=== PATIENT | female | born 1990 | race Caucasian/White ===

== ENCOUNTER 2016-09-20 12:52 | Emergency (ER) ==
[2016-09-20 12:59] VITALS: BP 100/73; TEMP 98.8; BMI 43.2
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
== END 2016-09-20 14:12 | disposition home or self-care (01) ==
LOC: ED 12:52
DX: B37.3 Candidiasis of vulva and vagina (principal)
CPT/HCPCS: 99282

== ENCOUNTER 2018-01-04 09:03 | Emergency (ER) ==
[2018-01-04 09:06] VITALS: BP 112/77; TEMP 98.3; BMI 29.0
--- NOTE | 2018-01-04 09:48 | ED.PDOC ---
General ED Provider: Dr. IZABELLA VITAL Chief Complaint: Urinary Problem Stated Complaint: Bladder infection: Complains or urgency, frequency and buring of urination. Onset 3 days ago. Denies hematuria, vaginal discharge, abdomial/flank pain, fever, chills or sweats. Currently 20 weeks y - Time Seen by Physician: 09:30 Mode of Arrival: Walk-In Information Source: Patient Exam Limitations: No limitations Primary Care Provider: SHAWANDA RENEE Nursing and Triage Documentation Reviewed and Agree: Yes Does patient meet sepsis criteria?: No System Inflammatory Response Syndrome: Not Applicable Sepsis Protocol: For patient's 13 years and over: Temp is 96.8 and below OR 101 and greater Pulse >90 BPM Resp >20/minute Acutely Altered Mental Status Are patient's symptoms suggestive of a new infection, such as: -Pneumonia -Skin, Soft Tissue -Endocarditis -UTI -Bone, Joint Infection -Implantable Device -Acute Abdominal Infection -Wound Infection -Meningitis -Blood Stream Catheter Infection -Unknown Complaint Exam - UTI Female Complaint/Exam Patient Complains of: Reports: Painful urination Onset/Duration: 3 days Symptoms Are: Still present Timing: Constant Initial Severity: Moderate Review of Systems - Review Of Systems Constitutional: Reports: No symptoms Eyes: Reports: No symptoms Ears, Nose, Mouth, Throat: Reports: No symptoms Respiratory: Reports: No symptoms Cardiac: Reports: No symptoms GI: Reports: No symptoms : Reports: Burning, Dysuria, Frequency, Urgency Musculoskeletal: Reports: No symptoms Skin: Reports: No symptoms Neurological: Reports: No symptoms Endocrine: Reports: No symptoms Hematologic/Lymphatic: Reports: No symptoms All Other Systems: Reviewed and Negative Past Medical History - Past Medical History Previously Healthy: Yes Endocrine: Reports: None Cardiovascular: Reports: None Respiratory: Reports: None Hematological: Reports: None Gastrointestinal: Reports: None Genitourinary: Reports: None, UTI Neuro/Psych: Reports: None Musculoskeletal: Reports: None Cancer: Reports: None Last Menstrual Period: 20 WEEKS PREG Other Pertinent Past Medical History: possible relation to intercourse - Surgical History General Surgical History: Reports: None, Other (delivery ). Denies: Hysterectomy (D&C20) - Family History Family History: Reports: None - Social History Smoking Status: Never smoker Hx Substance Use: No Alcohol Screening: Occasionally Physical Exam - Physical Exam Appearance: Well-appearing, No pain distress, Well-nourished Eyes: COLEMAN, EOMI, Conjunctiva clear ENT: Ears normal, Nose normal, Oropharynx normal Respiratory: Airway patent, Breath sounds clear, Breath sounds equal, Respirations nonlabored Cardiovascular: RRR, Pulses normal, No rub, No murmur GI/: Soft, No masses, Bowel sounds normal, No Organomegaly, Tender ( suprapubic region, no uterine tenderness, measured to sl below ubilicus) Musculoskeletal: Normal strength, ROM intact, No edema, No calf tenderness Skin: Warm, Dry, Normal color Neurological: Sensation intact, Motor intact, Reflexes intact, Cranial nerves intact, Alert, Oriented Psychiatric: Affect appropriate, Mood appropriate Re-Evaluation - Re-Evaluation Time of Re-Evaluation: 11:15 (Explained results of Testing) Status: Improved Vital Signs Stable: Yes Appearance: NAD Lungs: Clear Skin: Warm and Dry Neuro: Alert and Oriented X3 CV: RRR Critical Care Note - Critical Care Note Total Time (mins): 0 Course - Course Orders, Labs, Meds: Lab Review 01/04/18 09:14 Urine Color Yellow Urine Clarity Turbid Urine pH 7.0 Ur Specific [place] 1.025 Urine Protein 1+ Urine Glucose (UA) Negative Urine Ketones Negative Urine Blood Trace-intact Urine Nitrite Negative Urine Bilirubin Negative Urine Urobilinogen 1.0 Ur Leukocyte Esterase 3+ Urine Microscopic RBC 2-5 Urine Microscopic WBC 30-50 Ur Squamous Epith Cells 2-5 Urine Bacteria 1+ Orders Category Date Time Status UA [URINALYSIS C & S IF INDICATED] Stat LAB 01/04/18 09:14 Completed URINE CULTURE Stat LAB 01/04/18 09:14 Received Vital Signs: Temp Pulse Resp BP Pulse Ox 01/04/18 09:03 98.3 F 91 H 20 112/77 98 Departure - Departure Time of Disposition: 11:20 Disposition: HOME SELF-CARE Discharge Problem: UTI (urinary tract infection) during Instructions: Urinary Tract Infection in (ED) Condition: Good Pt referred to PMD for follow-up: Yes (1 week) IPMP verified?: No Additional Instructions: Force clear liquids Tylenol as needed for pain (650 mg every 6 hrs as needed) Take antibiotics as directed Call [employer] or PCP on Saturday to schedule follow up appointment for next Saturday If you develop high fever, chills or sweat take tylenol for temp elevation > 101 degrees and notify your OB Allergies/Adverse Reactions: Allergies Penicillins Adverse Reaction (Verified 01/04/18 09:06) Rash Home Medications: Ambulatory Orders Cephalexin [Keflex] 500 mg PO Q8HR #21 capsule 01/04/18 No122/Iron/Folic Acid [ Multi Tablet] 1 each PO DAILY 01/04/18 Disposition Discussed With: Patient
== END 2018-01-04 12:06 | disposition home or self-care (01) ==
LOC: ED 09:03
DX: O23.42 Unspecified infection of urinary tract in pregnancy, second trimester (principal); Z3A.20 20 weeks gestation of pregnancy
CPT/HCPCS: 81001; 87086; 87186; 99283

== ENCOUNTER 2018-06-28 13:49 | Emergency (ER) ==
[2018-06-28 13:55] VITALS: BP 145/92; TEMP 98.6; BMI 26.6
--- NOTE | 2018-06-28 14:02 | ED.PDOC ---
General ED Provider: Dr. IZABELLA VITAL Chief Complaint: Tooth Problem Stated Complaint: Toothache. Rt sided facial swelling and pain. HX of neurofibromatosis. Rt upper molar cracked/collapsed 2 days ago Time Seen by Physician: 14:00 Mode of Arrival: Walk-In Information Source: Patient Exam Limitations: No limitations Primary Care Provider: SHAWANDA RENEE Nursing and Triage Documentation Reviewed and Agree: Yes Does patient meet sepsis criteria?: No System Inflammatory Response Syndrome: Not Applicable Sepsis Protocol: For patient's 13 years and over: Temp is 96.8 and below OR 101 and greater Pulse >90 BPM Resp >20/minute Acutely Altered Mental Status Are patient's symptoms suggestive of a new infection, such as: -Pneumonia -Skin, Soft Tissue -Endocarditis -UTI -Bone, Joint Infection -Implantable Device -Acute Abdominal Infection -Wound Infection -Meningitis -Blood Stream Catheter Infection -Unknown EENT Complaint Exam - Dental/Oral Complaint/Exam Mechanism of Injury: No known trauma Symptoms Are: Still present Timing: Constant Initial Severity: Moderate Current Severity: Moderate Location: Rt sided maxillary region Character: Reports: Dull, Throbbing Aggravating: Reports: Cold, Chewing Alleviating: Reports: None Associated Signs and Symptoms: Reports: Swelling, Foul taste in mouth. Denies: Discharge, Fever, Foul odor Related History: Reports: Similar episode Cardiac Risk Factors: Reports: None Dental/Oral Surgical History: Reports: None Tooth Findings: Present: Percussion tenderness, Gross decay, Gross caries Cervical Lymphadenopathy Present: No Facial Swelling Present: Yes Bleeding Present: No Oropharynx Findings: Absent: Clots, Active bleeding Septal Hematoma: No Foreign Body Present: No Dysphagia Present: No Drooling Present: No Asymmetrical Tonsillar Swelling Present: No Uvula Midline: Yes Charity-tonsillar Fluctuence: No Trismus Present: No Palatal Petechiae Present: Yes Scarlatinaform Rash Present: No Lesions: Absent: Lip, Gums, Tongue, Buccal Mucosa, Pharynx Exanthem: Absent: Lip, Gums, Tongue, Buccal Mucosa, Pharynx Vesicles: Absent: Lip, Gums, Tongue, Buccal Mucosa, Pharynx Differential Diagnoses: Dental Abcess, Dental Caries, Periodontic Disease Review of Systems - Review Of Systems Constitutional: Reports: No symptoms Eyes: Reports: No symptoms Ears, Nose, Mouth, Throat: Reports: No symptoms, Mouth pain, Mouth swelling Respiratory: Reports: No symptoms Cardiac: Reports: No symptoms GI: Reports: No symptoms : Reports: No symptoms Musculoskeletal: Reports: No symptoms Skin: Reports: No symptoms Neurological: Reports: No symptoms Endocrine: Reports: No symptoms Hematologic/Lymphatic: Reports: No symptoms All Other Systems: Reviewed and Negative Past Medical History - Past Medical History Previously Healthy: Yes Endocrine: Reports: None Cardiovascular: Reports: None Respiratory: Reports: None Hematological: Reports: None Gastrointestinal: Reports: None Genitourinary: Reports: None, UTI Neuro/Psych: Reports: None Musculoskeletal: Reports: None Cancer: Reports: None Last Menstrual Period: [id number] Other Pertinent Past Medical History: possible relation to intercourse - Surgical History General Surgical History: Reports: None, Other (delivery ). Denies: Hysterectomy (D&C20) - Family History Family History: Reports: None - Social History Smoking Status: Never smoker Hx Substance Use: No Alcohol Screening: None - Immunizations Tetanus Shot up to Date: No Physical Exam - Physical Exam Appearance: Ill-appearing Ill-appearing: None Pain Distress: Moderate Eyes: COLEMAN, EOMI, Conjunctiva clear ENT: Ears normal, Nose normal, Oropharynx normal Neck: Supple Respiratory: Airway patent Cardiovascular: RRR, Pulses normal, No rub, No murmur GI/: Soft, Nontender, No masses, Bowel sounds normal, No Organomegaly Musculoskeletal: Normal strength, ROM intact, No edema, No calf tenderness Skin: Warm, Dry, Normal color Neurological: Sensation intact, Motor intact, Reflexes intact, Cranial nerves intact, Alert, Oriented Psychiatric: Affect appropriate, Mood appropriate Critical Care Note - Critical Care Note Total Time (mins): 0 Course - Course Vital Signs: Temp Pulse Resp BP Pulse Ox 06/28/18 13:52 98.6 F 77 18 145/92 H 99 Departure - Departure Time of Disposition: 14:10 Disposition: HOME SELF-CARE Discharge Problem: Toothache, Abscess, dental Instructions: Dental Abscess (ED), Toothache (ED) Condition: Good Pt referred to PMD for follow-up: Yes (See PCP or Dentist next week) IPMP verified?: No Additional Instructions: Rinse mouth with warm salt water oragel topically for pain control avoid chewing on rt side Sched apt to see dentist at [facility] in [facility] next week Follow up ER if worsens Prescriptions: Clindamycin HCl [Cleocin HCl] 300 mg PO QID #28 capsule Ketorolac Tromethamine [Toradol] 10 mg PO Q6H PRN #20 tablet PRN Reason: Toothache Allergies/Adverse Reactions: Allergies Penicillins Adverse Reaction (Verified 06/28/18 13:54) Rash Home Medications: Ambulatory Orders Clindamycin HCl [Cleocin HCl] 300 mg PO QID #28 capsule 06/28/18 Ketorolac Tromethamine [Toradol] 10 mg PO Q6H PRN #20 tablet 06/28/18 Disposition Discussed With: Patient
== END 2018-06-28 14:25 | disposition home or self-care (01) ==
LOC: ED 13:49
DX: K08.89 Other specified disorders of teeth and supporting structures (principal); K04.7 Periapical abscess without sinus; S02.5XXA Fracture of tooth (traumatic), initial encounter for closed fracture
CPT/HCPCS: 99282

== ENCOUNTER 2018-11-14 20:42 | Emergency (ER) ==
[2018-11-14 20:46] VITALS: BP 133/91; TEMP 99; BMI 29.2
--- NOTE | 2018-11-14 21:40 | ED.PDOC ---
General ED Provider: Dr. SWATHI CHUNG Chief Complaint: Urinary Problem Stated Complaint: 28 y old with UTI.States has uti s on/off since NMarch and some before,Is allergic to PCN.Offered work-up for chronic uti but patient asked if sshe can dso it with her doctor,soon after,No other synptoms voiced, Afebrike today,. Had gestational DM.On meds from her doctor. Time Seen by Physician: 20:50 Mode of Arrival: Walk-In Information Source: Patient Exam Limitations: No limitations Primary Care Provider: SHAWANDA RENEE Nursing and Triage Documentation Reviewed and Agree: Yes Does patient meet sepsis criteria?: No System Inflammatory Response Syndrome: Not Applicable Sepsis Protocol: For patient's 13 years and over: Temp is 96.8 and below OR 101 and greater Pulse >90 BPM Resp >20/minute Acutely Altered Mental Status Are patient's symptoms suggestive of a new infection, such as: -Pneumonia -Skin, Soft Tissue -Endocarditis -UTI -Bone, Joint Infection -Implantable Device -Acute Abdominal Infection -Wound Infection -Meningitis -Blood Stream Catheter Infection -Unknown Complaint Exam - UTI Female Complaint/Exam Onset/Duration: on/off since august Symptoms Are: Still present Timing: Intermittent Initial Severity: Moderate Current Severity: Mild Location of Pain: Reports: Suprapubic Associated Signs and Symptoms: Reports: Chills, Flank pain Para: 2 Related History: Reports: Similar episode Related Surgical History: Reports: None CVA Tenderness: No (not now) Suprapubic Tenderness: Yes Differential Diagnoses: Bladder Dysfunction, Diabetes, Pyelonephritis Review of Systems - Review Of Systems Constitutional: Reports: No symptoms Eyes: Reports: No symptoms Ears, Nose, Mouth, Throat: Reports: No symptoms Respiratory: Reports: No symptoms Cardiac: Reports: No symptoms GI: Reports: No symptoms : Reports: No symptoms Musculoskeletal: Reports: No symptoms Skin: Reports: No symptoms Neurological: Reports: No symptoms Endocrine: Reports: No symptoms Hematologic/Lymphatic: Reports: No symptoms All Other Systems: Reviewed and Negative Past Medical History - Past Medical History Previously Healthy: Yes Endocrine: Reports: None Cardiovascular: Reports: None Respiratory: Reports: None Hematological: Reports: None Gastrointestinal: Reports: None Genitourinary: Reports: None, UTI Neuro/Psych: Reports: None Musculoskeletal: Reports: None Cancer: Reports: None Last Menstrual Period: 10/18/18 (IRREGULAR DUE TO NEW CONTROL) Other Pertinent Past Medical History: possible relation to intercourse - Surgical History General Surgical History: Reports: None, Other (delivery ). Denies: Hysterectomy (D&C204) - Family History Family History: Reports: None - Social History Smoking Status: Never smoker Hx Substance Use: No Alcohol Screening: None - Immunizations Tetanus Shot up to Date: No Physical Exam - Physical Exam Appearance: Well-appearing Ill-appearing: None Pain Distress: None Eyes: COLEMAN, EOMI, Conjunctiva clear ENT: Ears normal, Nose normal, Oropharynx normal Neck: Supple Respiratory: Airway patent, Breath sounds clear, Breath sounds equal Cardiovascular: RRR, Pulses normal, No rub, No murmur GI/: Soft, Nontender, No masses, Bowel sounds normal, No Organomegaly Musculoskeletal: Normal strength, ROM intact, No edema, No calf tenderness Skin: Warm, Dry, Normal color Neurological: Sensation intact, Motor intact, Reflexes intact, Cranial nerves intact, Alert, Oriented Psychiatric: Affect appropriate Critical Care Note - Critical Care Note Total Time (mins): 0 Course - Course Hematology/Chemistry: 11/14/18 21:55 11/14/18 21:55 Orders, Labs, Meds: Lab Review 11/14/18 11/14/18 11/14/18 21:30 21:55 21:55 WBC 10.15 RBC 4.79 Hgb 12.1 Hct 38.1 MCV 79.5 L MCH 25.3 L MCHC 31.8 RDW Coeff of [place] 15.1 H Plt Count 287 Immature Gran % (Auto) 0.2 Neut % (Auto) 72.0 Lymph % (Auto) 20.4 [place] % (Auto) 4.2 Eos % (Auto) 2.6 Baso % (Auto) 0.6 Immature Gran # (Auto) 0.0 Neut # (Auto) 7.3 H Lymph # (Auto) 2.1 Baker # (Auto) 0.4 Eos # (Auto) 0.3 Baso # (Auto) 0.1 Sodium 140.7 Potassium 3.62 Chloride 104.3 Carbon Dioxide 25.1 Anion Gap 14.92 BUN 17.1 H Creatinine 0.76 Estimated GFR (MDRD) 91.00 BUN/Creatinine Ratio 22.50 Glucose 113.6 H Calcium 9.43 Total Bilirubin 0.49 AST 29.5 ALT 15.2 Alkaline Phosphatase 65.0 Total Protein 8.05 Albumin 4.76 Globulin 3.29 Albumin/Globulin Ratio 1.44 Urine Color Yellow Urine Clarity Cloudy Urine pH 6.0 Ur Specific [place] 1.025 Urine Protein 1+ Urine Glucose (UA) Negative Urine Ketones Negative Urine Blood Negative Urine Nitrite Negative Urine Bilirubin Negative Urine Urobilinogen 0.2 Ur Leukocyte Esterase 1+ Urine Microscopic RBC 0-2 Urine Microscopic WBC 20-30 Ur Squamous Epith Cells 20-30 Urine Bacteria 2+ Urine Mucus Trace Orders Category Date Time Status CBC W/ AUTO DIFF Stat LAB 11/14/18 21:55 Completed COMPREHENSIVE METABOLIC PANEL Stat LAB 11/14/18 21:55 Completed UA [URINALYSIS C & S IF INDICATED] Stat LAB 11/14/18 21:30 Completed URINE CULTURE Stat LAB 11/14/18 21:30 Received Vital Signs: Temp Pulse Resp BP Pulse Ox 11/14/18 20:42 99.0 F 105 H 18 133/91 H 98 Departure - Departure Time of Disposition: 22:34 Disposition: HOME SELF-CARE Discharge Problem: UTI (urinary tract infection) Instructions: Urinary Tract Infection in Women (ED) Condition: Good Pt referred to PMD for follow-up: Yes IPMP verified?: No Additional Instructions: Lavofloxacin 500 mg QD x 7 d.Macrobid tab a 100mg QID x 10 days. Allergies/Adverse Reactions: Allergies Penicillins Adverse Reaction (Verified 11/14/18 20:45) Rash Home Medications: Ambulatory Orders 1 [No Reported Medications] 11/14/18 Disposition Discussed With: Patient
== END 2018-11-14 22:36 | disposition home or self-care (01) ==
LOC: ED 20:42
DX: N39.0 Urinary tract infection, site not specified (principal); Z87.440 Personal history of urinary (tract) infections
CPT/HCPCS: 36415; 80053; 81001; 85025; 87086; 99283